=== PATIENT | male | born 1945 | race Caucasian/White ===

== ENCOUNTER → 2016-09-21 20:06 | Outpatient (CLI) | payer MEDICARE ==
[2016-08-09 14:03] VITALS: BMI 32.8
[~2016-09-21 20:06] MED LIST: AUGMENTIN 500-11 TA1 PO; COZAAR50 MG PO; FLOMAX0.4 MG PO; PROTONIX40 MG PO
== END | disposition home or self-care (01) ==
LOC: D.SLEEP 20:00
DX: G47.33 Obstructive sleep apnea (adult) (pediatric) (principal)

== ENCOUNTER → 2016-09-26 08:55 | Outpatient (CLI) | payer MEDICARE ==
[2016-08-09 14:03] VITALS: BMI 32.8
== END | disposition home or self-care (01) ==
LOC: D.RT 08:55
DX: J44.9 Chronic obstructive pulmonary disease, unspecified (principal)

== ENCOUNTER → 2016-10-04 11:55 | Outpatient (CLI) | payer MEDICARE ==
[2016-08-09 14:03] VITALS: BMI 32.8
[2016-10-08 03:10] LABS: HCVGENO - HEP C QUANT 5720000 IU/mL (()); HCVGENO - LOG 10 6.757 (())
== END | disposition home or self-care (01) ==
LOC: D.LAB 11:55
PROVIDERS: Legal Medicine
DX: B19.20 Unspecified viral hepatitis C without hepatic coma (principal)

== ENCOUNTER → 2018-06-19 10:44 | Outpatient (CLI) | payer MEDICARE ==
[2016-08-09 14:03] VITALS: BMI 32.8
== END | disposition home or self-care (01) ==
LOC: D.RAD 10:44
DX: J44.9 Chronic obstructive pulmonary disease, unspecified (principal)

== ENCOUNTER → 2019-03-13 10:28 | Outpatient (CLI) | payer MEDICARE ==
[2016-08-09 14:03] VITALS: BMI 32.8
== END | disposition home or self-care (01) ==
LOC: D.RT 10:28
PROVIDERS: ATTEND Internal Medicine Pulmonary Disease
DX: J44.9 Chronic obstructive pulmonary disease, unspecified (principal)

== ENCOUNTER → 2019-03-19 11:36 | Outpatient (CLI) | payer MEDICARE ==
[2016-08-09 14:03] VITALS: BMI 32.8
[2019-03-19 14:27] LABS: ERYTHROCYTE SEDIMENTATION RATE 6 mm/hr (0-20)
[2019-03-20 11:10] LABS: ANA REFLEX - DIRECT Negative (Negative)
== END | disposition home or self-care (01) ==
LOC: D.LABREF 11:36
PROVIDERS: ATTEND Internal Medicine Pulmonary Disease
DX: J44.9 Chronic obstructive pulmonary disease, unspecified (principal)

== ENCOUNTER → 2019-04-24 10:58 | Outpatient (CLI) | payer MEDICARE ==
[2016-08-09 14:03] VITALS: BMI 32.8
== END | disposition home or self-care (01) ==
LOC: D.CT 10:58
PROVIDERS: ATTEND Internal Medicine Pulmonary Disease
DX: R07.89 Other chest pain (principal)

== ENCOUNTER → 2020-02-25 15:11 | Outpatient (CLI) | payer OTHER ==
[2016-08-09 14:03] VITALS: BMI 32.8
== END | disposition home or self-care (01) ==
LOC: D.LAB 15:11
PROVIDERS: ATTEND Internal Medicine Pulmonary Disease
DX: Z11.59 Encounter for screening for other viral diseases (principal)

== ENCOUNTER → 2020-02-28 15:44 | Outpatient (CLI) | payer MEDICARE ==
[2016-08-09 14:03] VITALS: BMI 32.8
== END | disposition home or self-care (01) ==
LOC: D.RT 02-25 15:00 → D.RAD 02-25 15:45 → D.RT 15:44
PROVIDERS: ATTEND Internal Medicine Pulmonary Disease
DX: J44.9 Chronic obstructive pulmonary disease, unspecified (principal)